=== PATIENT | male | born 1955 | race Caucasian/White ===

== ENCOUNTER 2023-11-03 06:46 | Emergency (ER) | payer MEDICARE, BC, SELFPAY ==
[2023-11-03 07:30] VITALS: BP 123/76
[2023-11-03 08:00] VITALS: BP 131/74
--- NOTE | 2023-11-03 08:04 | ED.MUSCINJ ---
HPI-Injury
General
Chief Complaint: Musculo-Skeletal Complaint
Source: patient
Exam Limitations: none
Time Seen by Provider: 11/03/23 08:00
Nursing documentation reviewed up to this point in time: agreed with
History of Present Illness-Injury
Initial Injury comments:
68 yo male w h/o HTN, HLD, presents stating yesterday at home, struck left lower weber 'hard' on a low horizontal pole. Has had pain in the area and unable to sleep last night due to pain, little relief with OTC analgesics. No pain with weight
bearing. Feels numb locally. Shooting, stinging pains at rest.
Past History
Past History
ED Past Medical History: HTN and Hypercholesterolemia
ED Past Surgical History: Orthopedic (plate right ankle 20 yrs ago )
Review of Systems
Review of Systems
Allergies reviewed?: Yes
All Other Systems: ROS reviewed and negative except as documented in HPI and ROS
Musculoskeletal: Reports other (pain left lower weber)
Skin: Reports other (mild swelling, mild ecchymosis left lower weber)
Phy Exam
Physical Exam
Physical Exam:
GENERAL: No acute distress. A&Ox3.
CONSTITUTIONAL: Afebrile.
RESPIRATORY: Regular respirations, nonlabored, lungs clear.
CARDIOVASCULAR: Regular rate and rhythm, no murmurs, no rubs.
MUSCULOSKELETAL: Mildly swollen, mildly ecchymotic area left lower weber. paresthesia immediately at the site, no significant tenderness to palpation. Distal N/V intact. Moves with ease. Well perfused.
SKIN: Warm, dry, pink
PSYCH: Normal mood and affect. Well kept, interactive and appropriate
NEUROLOGIC: Awake, alert and oriented. No focal neurological deficits
Injury Course
Orders/Labs/Results
Orders:
Orders
11/03/23 08:10
Tib/Fib, Left 2 View [CR Leg Tibia/fibula Left 2 Vw] Urgent
Comment:
Reason For Exam: struck lower weber on pole
MDM/Problems Addressed
Differential Diagnosis Includes:
contusion, fracture
MDM/Problems Addressed:
68 yo male w h/o HTN, HLD, presents stating yesterday at home, struck left lower weber 'hard' on a low horizontal pole. Has had pain in the area and unable to sleep last night due to pain, little relief with OTC analgesics. No pain with weight
bearing. Feels numb locally. Shooting, stinging pains at rest.
Xray left tib fib initially read by this examiner: No fracture or other abnormality noted
*Critical Care Note
Total Time (30-74mins, 75-104mins- exclusive of procedures): Not Applicable
ED Attending Note
-
Portions of this chart may have been created with voice recognition software.� Occasional wrong word or��sound alike� substitutions may have occurred due to the inherent limitations of voice recognition software.
Discharge Plan
Departure
Patient Disposition: Home (Routine Discharge)
Date of Disposition: 11/03/23
Time of Disposition: 08:41
Patient with high blood pressure during this ER visit?: No
Condition: Good
Discharge Problem:
Contusion of right lower leg
Instructions: Contusion (DC), Using Cold for Pain
Referrals:
Austyn Garrido MD [Family Provider] - As needed
Activity Restrictions/Additional Instructions:
As we discussed, your xray is normal.
Ibuprofen as needed for pain.
Cold compress 15 minutes off and on today as much as possible.
Interventions
Interventions:
*Risk Screen - Suicide Last Done: 11/03/23 06:47
*General Assessment Last Done: 11/03/23 07:31
*Neglect/Abuse Screening Last Done: 11/03/23 07:31
ED- Fall Risk Assessment Last Done: 11/03/23 07:31
*ED COVID-19 Vaccine History Last Done: 11/03/23 07:31
*Nursing Disposition Last Done: 11/03/23 08:46
ED-Musculoskeletal Assessment Last Done: 11/03/23 07:31
Discharge Date and Time
Discharge Date/Time: 11/03/23 08:46
Print Language: [id number]
== END 2023-11-03 08:46 | disposition home or self-care (01) ==
LOC: EMR 06:46
PROVIDERS: EMERGENCY PHYSICIAN Emergency Medicine; FAMILY PHYSICIAN Internal Medicine
DX: S80.11XA Contusion of right lower leg, initial encounter (principal); R20.2 Paresthesia of skin; W22.09XA Striking against other stationary object, initial encounter; E78.00 Pure hypercholesterolemia, unspecified; I10 Essential (primary) hypertension; Z88.0 Allergy status to penicillin
CPT/HCPCS: 99283; 73590